=== PATIENT | male | born 1955 | race Caucasian/White ===

== ENCOUNTER 2017-07-31 11:50 | Emergency (ER) | payer SELFPAY ==
[~2017-07-31] VITALS: Ht 182.9 cm; Wt 74.8 kg
--- OUTSIDE RECORDS SUMMARY | 2017-07-31 12:41 | XMS REPORT | Continuity of Care Document ---
Author Author [facility] Organization [facility] Address Unknown Phone Unavailable Allergies Medications Problems Procedures Results Encounters ACCT No. Visit Date/Time Discharge Status Pt. Type Provider Facility Loc./Unit Complaint [id number] 07/19/2015 13:15:00 2014 14:15:00 DIS Emergency JAZMYN KING, CLIF [facility] ER
--- NOTE | 2017-07-31 14:52 | ED EENT ---
History of Present Illness General Chief Complaint: Ear Problems Stated Complaint: RT EAR CLOGGED Nursing Triage Note: Pt c/o R ear pain. Pt states he thinks he got dirt in his ear approx 2 wks ago and ear has been clogged. pt reports seeing Dr. Barroso 4x and treated w/ ear drops w/ no relief. Source: patient Exam Limitations: no limitations History of Present Illness Time seen by provider: 14:48 Initial Comments 62 YO MALE PATIENT PRESENTS TO THE ED WITH C/O RT EAR FEELING CLOGGED. REPORTS DECREASED HEARING IN THE RT EAR X2 WKS. GETTING WORSE. WAS SEEN BY DR. BARROSO AND TREATED WITH DEBROX AND IRRIGATED WITH WATER. PATIENT DENIES IMPROVEMENT IN SYMPTOMS. Timing/Duration: gradual, other (2 WKS.) Location: ear (R) Prearrival Treatment: over the counter meds, other (IRRIGATION AND DEBROX) Allergies and Home Medications Allergies Coded Allergies: No Known Drug Allergies (Unverified , 07/31/17) Home Medications Amoxicillin 500 Mg Capsule, 1,000 MG PO TID, #60 Ref 0 Prescribed by: GIA BRANDON on 07/31/17 1515 Ofloxacin 5 Ml Drops, 5 DROPS OT DAILY for 7 Days, #1 Ref 0 Prescribed by: GIA BRANDON on 07/31/17 1515 Review of Systems Constitutional: No chills, No fever, No malaise Eyes: No Symptoms Reported Ears: See HPI, Denies Dizziness, Denies Pain, Denies Tinnitus, Denies Bloody Discharge, Denies Clear Discharge, Denies Purulent Discharge, Denies Serosanguinous Discharge Nose: denies congestion, denies pain Mouth: no symptoms reported Throat: denies pain, denies swelling, denies hoarse, denies aphonia, denies muffled, denies painful swallowing, denies difficulty with fluids Respiratory: no symptoms reported Cardiovascular: no symptoms reported Gastrointestinal: no symptoms reported Skin: no symptoms reported Neurological: No Symptoms Reported All Other Systems Reviewed Negative Unless Noted: Yes (Negative excepted noted.) Past Ldcolfh-Ssccju-Ulxsdu Hx Patient Social History Alcohol Use: Denies Use Recreational Drug Use: No Smoking Status: Current Everyday Smoker Type Used: Cigarettes Recent Foreign Travel: No Contact w/Someone Who Travel: No Recent Infectious Disease Expo: No Recent Hopitalizations: No Seasonal Allergies Seasonal Allergies: No Surgeries History of Surgeries: Yes (hernia repair) Respiratory History of Respiratory Disorde: No Cardiovascular History of Cardiac Disorders: No Neurological History of Neurological Disord: No Genitourinary History of Genitourinary Disor: No Gastrointestinal History of Gastrointestinal Di: No Musculoskeletal History of Musculoskeletal Dis: No Endocrine History of Endocrine Disorders: No HEENT History of HEENT Disorders: No Cancer History of Cancer: No Psychosocial History of Psychiatric Problem: No Reviewed Nursing Assessment Reviewed/Agree w Nursing PMH: Yes Family Medical History Significant Family History: No Pertinent Family Hx Physical Exam Vital Signs Vital Sign - Last 12Hours 07/31/17 12:40 Temp 98.6 Pulse 53 Resp 18 B/P (MAP) 136/73 Pulse Ox 96 O2 Delivery Room Air General Appearance: WD/WN, no apparent distress Eyes: bilateral eye normal inspection, bilateral eye PERRL, bilateral eye EOMI Ears: right ear TM red, right ear TM bulging, left ear TM normal, bilateral ear auricle normal, bilateral ear canal normal Nose: normal inspection Mouth/Throat: normal mouth inspection, pharynx normal Neck: non-tender, full range of motion, supple, lymphadenopathy (R), lymphadenopathy (L) Cardiovascular: normal peripheral pulses, regular rate, rhythm, no murmur Respiratory: lungs clear, normal breath sounds, no respiratory distress, no accessory muscle use Gastrointestinal: normal bowel sounds, non tender, soft, no organomegaly, No distended Neurologic/Psychiatric: alert, normal mood/affect, oriented x 3 Skin: normal color, warm/dry Progress/Results/Core Measures Results/Orders My Orders Orders - GIA BRANDON Ceftriaxone Injection (Rocephin Injectio (07/31/17 15:15) Lidocaine 1% Injection (Xylocaine 1% Inj (07/31/17 15:15) Medications Given in ED Current Medications Medications Dose Ordered Sig/Simona Route Start Time Stop Time Status Last Admin Dose Admin Ceftriaxone Sodium 1,000 mg ONCE ONCE IM 07/31/17 15:15 07/31/17 15:16 DC 07/31/17 15:17 1,000 MG Lidocaine HCl 2.1 ml ONCE ONCE INJ 07/31/17 15:15 07/31/17 15:16 DC 07/31/17 15:18 2.1 ML Vital Signs/I&O Vital Sign - Last 12Hours 07/31/17 15:39 Temp 98.6 Pulse 57 Resp 18 Pulse Ox 98 Blood Pressure Mean: 94 Departure Impression Impression: Primary Impression: Otitis media Qualified Codes: H66.001 - Acute suppurative otitis media without spontaneous rupture of ear drum, right ear Disposition: 01 HOME, SELF-CARE Condition: Improved Departure-Patient Inst. Decision time for Depature: 15:11 Referrals: PERLA BARROSO DO (PCP/Family) Primary Care Physician Patient Instructions: Ear Infections (Otitis Media) (DC) Add. Discharge Instructions: All discharge instructions reviewed with patient and/or family. Voiced understanding. Medications as instructed. Tylenol Extra Strength over-the- counter as directed for pain. Ibuprofen 800 mg by mouth every 8 hours as needed for pain. Afrin nasal spray [id number] 2-3 sprays in each NOSTRIL x 3 days to help reduce fluid behind the eardrums. Follow-up with Dr. Dr. Barroso as an outpatient for recheck. Return to the emergency department for worsened pain, fever, drainage from the ear, headache, dizziness, or any other concerns. Scripts Ofloxacin (Ofloxacin) 5 Ml Drops 5 DROPS OT DAILY for 7 Days, #1 EA 0 Refills Prov: GIA BRANDON 07/31/17 Amoxicillin (Amoxicillin) 500 Mg Capsule 1000 MG PO TID, #60 CAP 0 Refills Prov: GIA BRANDON 07/31/17 GIA BRANDON Jul 31, 2017 14:52
[2017-07-31] MEDS ORDERED: LIDOCAINE 1% INJ 20 ML (XYLOCAINE) VIAL INJ ONE (15:15)
[2017-07-31] MEDS ORDERED: OFLO5DRO7 OT (15:15)
[2017-07-31] MEDS ORDERED: cefTRIAXone 1 GM (ROCEPHIN) VIAL IM ONE (15:15)
[2017-07-31] MEDS ORDERED: AMOX500C2 PO (15:15)
[2017-07-31 15:39] VITALS: BP 132/70
== END 2017-07-31 15:39 | disposition home or self-care (01) ==
LOC: EDUNIT# 11:50 → ER 11:52
DX: H66.91 Otitis media, unspecified, right ear (principal); F17.210 Nicotine dependence, cigarettes, uncomplicated
CPT/HCPCS: 99284